=== PATIENT | female | born 1950 | race Caucasian/White ===

== ENCOUNTER → 2016-08-01 | Outpatient (CLI) | payer BC | END | disposition home or self-care (01) | LOC: RAD.S 09:51 | DX: N63 Unspecified lump in breast (principal); R05 Cough; C80.1 Malignant (primary) neoplasm, unspecified; C79.51 Secondary malignant neoplasm of bone ==

== ENCOUNTER → 2016-08-14 | Outpatient (CLI) | payer BC | END | disposition home or self-care (01) | LOC: RAD.S 07:42 | DX: C50.911 Malignant neoplasm of unspecified site of right female breast (principal); C79.51 Secondary malignant neoplasm of bone; C91.10 Chronic lymphocytic leukemia of B-cell type not having achieved remission; J90 Pleural effusion, not elsewhere classified ==